=== PATIENT | female | born 1995 | race Caucasian/White ===

== ENCOUNTER 2020-02-24 23:02 | Emergency (ER) | payer BC, SELFPAY ==
[2020-02-24 23:15] VITALS: BP 123/93; PULSE 111; RESP 19; TEMP 37.2; O2SAT 100
--- NOTE | 2020-02-24 23:56 | ED.HA ---
HPI - Headache General Chief Complaint: Headache Stated Complaint: headache/sinus infection? Time Seen by Provider: 02/24/20 23:50 History of Present Illness HPI Narrative: Patient presents with 10 days of right-sided headache. She has had headaches since she was a teenager. Usually only last 2 to 3 days. This ones on the right side and then radiating towards the frontal. She did have visual changes and blurry vision which is resolved. She has nausea but no vomiting. She is breast-feeding. She never did notice a pattern of headaches that correlated with her periods. She is not tried medication for this had. MD elicited complaint: headache Pertinent past history: migraines Onset (ago): day(s) Onset description: gradually Location: right Severity: severe Pain scale (0-10): 4 Quality & Timing: throbbing Associated symptoms: nausea Related Data Allergies Allergy/AdvReac Type Severity Reaction Status Date / Time clarithromycin Allergy Mild Verified 07/09/17 18:45 Review of Systems Review of Systems: Narrative: CONSTITUTIONAL: Denies fever, chills, or sweats. EYES: Denies visual changes, redness, or discharge. ENT: Denies rhinorrhea, congestion, sore throat, or otalgia. CARDIOVASCULAR: Denies chest pain, palpitations, or edema. RESPIRATORY: Denies cough or dyspnea. GASTROINTESTINAL: Denies abdominal pain, nausea, vomiting, or diarrhea. GENITOURINARY: Denies dysuria or hematuria. SKIN: Denies rash or itching. MUSCULOSKELETAL: Denies back pain, joint pain, or myalgia. NEUROLOGIC: She does have headache, but not numbness, or weakness. PSYCHIATRIC: Denies anxiety or depression. PMFSH Surgical History Surgical History History of History of tubal ligation Social History Social History (Updated 02/24/20 @ 23:58 by Isabel Urban MD) Smoking status: Never smoker Alcohol intake: current Alcohol use details: Rarely Gender identity (if verbalized by the patient): Female Exam Narrative: Exam Narrative: GENERAL: Well-appearing, well-nourished, and in no acute distress. Soft red curls, thin HEAD: Normocephalic, atraumatic. EYES: PERRLA and EOMI. ENT: Nares clear, no rhinorrhea or epistaxis. Mucous membranes moist. NECK: Supple. CHEST: Clear to auscultation. No respiratory distress. HEART: Regular rate and rhythm. No murmur heard. Normal peripheral pulses. ABDOMEN: Soft, nontender, nondistended, normal active bowel sounds. EXTREMITIES: Normal range of motion. No edema. SKIN: Warm, dry, no rash. NEURO: No focal deficits. Alert and oriented x3. PSYCH: Normal mood and affect. Course Reevaluation(s) Reevaluation #1: Went in to check on the patient at 1:30 AM, and her IV bag was finished, she said her headache was completely gone. We will discharge her with a referral to Dr. Meza for migraine headaches. Date: 02/25/20 Time: 01:30 Vital Signs Vital signs: Vital Signs Temperature 98.9 F 02/24/20 23:15 Pulse Rate 111 H 02/24/20 23:15 Respiratory Rate 19 02/24/20 23:15 Blood Pressure 123/93 H 02/24/20 23:15 Pulse Oximetry 100 02/24/20 23:15 Temperature 98.9 F 02/24/20 23:15 Pulse Rate 99 02/25/20 00:13 Respiratory Rate 19 02/25/20 00:13 Blood Pressure 121/83 02/25/20 00:13 Pulse Oximetry 100 02/25/20 00:13 [facility] - Headache Medical Records Attestation: I reviewed the patient's medical records. Discharge Plan Discharge Clinical Impression: Migraine Qualifiers: Migraine type: unspecified Status migrainosus presence: without status migrainosus Intractability: not intractable Qualified Code(s): G43.909 - Migraine, unspecified, not intractable, without status migrainosus Patient Disposition: Home, Self-Care Condition: Improved Instructions: Migraine Headache (ED) Follow-up/Referrals: Jeanmarie Meza MD [Physician] - (Call make a new patient appointment for your headaches) PHYSICIAN,[employer] [Primary Care
[2020-02-25 00:13] VITALS: BP 121/83; PULSE 99; RESP 19; O2SAT 100
[2020-02-25] MEDS: SODIUM CHLORIDE 0.9% IV 1,000 ML 999 ML IV CONT (00:13)
[2020-02-25] MEDS: METOCLOPRAMIDE HCL INJ 10 MG/2 ML VIAL IV PUSH (00:13)
[2020-02-25 01:51] VITALS: BP 121/84; PULSE 79; RESP 19; TEMP 36.6; O2SAT 100
== END 2020-02-25 01:45 | disposition home or self-care (01) ==
PROVIDERS: Emergency Provider Emergency Medicine
DX: G43.909 Migraine, unspecified, not intractable, without status migrainosus (principal)
CPT/HCPCS: 96361; 96374; 96375; 99284; J1200; J2765; J7030

== ENCOUNTER 2020-04-15 14:38 | Outpatient (CLI) | payer BC, SELFPAY ==
--- NOTE | ~2020-04-15 | MR_ITS ---
EXAMINATION: MR brain/brain stem wo con EXAM DATE: 04/15/2020 15:28 INDICATION: Headache. TECHNIQUE: Magnetic resonance imaging (MRI) of the brain/brain stem obtained without contrast. Sagitt al T1, axial diffusion, gradient echo (T2*), T1, T2, FLAIR sequences obtained. There is no prior st udy for comparison. FINDINGS: There are no areas of restricted diffusion to suggest acute infarction. There is no acute hemorrhage seen on the T2*, a hemosiderin sensitive sequence. No intraparenchymal brain mass. The ve ntricles are normal in size. There are no extra-axial collections. Flow voids are seen in the cereb ral arteries on the T2-weighted sequences consistent with their expected patency. The orbits are unr emarkable. Soft tissue is unremarkable. The left frontal, ethmoid, maxillary and sphenoid sinuses are completely opacified from both mucoperi osteal thickening and fluid. Moderate to severe mucoperiosteal thickening in the right maxillary ethm oid and frontal sinuses. Consider sinusitis. IMPRESSION: 1. Extensive sinus disease. Reviewed, dictated and finalized at location B. IMPRESSION: 1. Extensive sinus disease.
== END 2020-04-15 14:39 | disposition home or self-care (01) ==
PROVIDERS: Visit Provider Psychiatry & Neurology Neurology
DX: R51 Headache (principal); J32.9 Chronic sinusitis, unspecified
CPT/HCPCS: 70551